=== PATIENT | male | born 1990 | race American Indian/Alaskan Native ===

== ENCOUNTER 2021-09-21 14:38 | Emergency (ER) | payer BC ==
[~2021-09-21] VITALS: Ht 152.4 cm; Wt 53.5 kg
[~2021-09-21 14:38] MED LIST: ACID REDUCER 1150 MG PO; IBUP600 PO; LOPE2C PO; Naprosyn500 MG PO; Norco 10-325 T1 EACH PO; Norco 5-325 Ta1 EACH PO; Papaya Enzyme1 EAC1 PO; Pepcid40 MG PO; Prilosec Otc20 MG PO; RANI150; Robaxin500 MG PO; Veetids 500500 MG PO; Zofran Odt4 MG SL; Zofran4 MG PO; Zofran8 MG PO
== END 2021-09-21 14:46 | disposition home or self-care (01) ==
LOC: ER 14:38
DX: U07.1 COVID-19 (principal); F17.210 Nicotine dependence, cigarettes, uncomplicated; Z91.011 Allergy to milk products
CPT/HCPCS: 99282

== ENCOUNTER 2021-11-22 21:20 | Emergency (ER) | payer BC, OTHER ==
[~2021-11-22] VITALS: Ht 152.4 cm; Wt 50.8 kg
[2021-11-22] MEDS ORDERED: LIDO700A20 TOP (23:36)
[2021-11-22] MEDS ORDERED: CYCLOBENZAPRINE5 MG PO (23:36)
== END 2021-11-23 | disposition home or self-care (01) ==
LOC: ER 21:20
DX: S29.012A Strain of muscle and tendon of back wall of thorax, initial encounter (principal); X58.XXXA Exposure to other specified factors, initial encounter; Z91.011 Allergy to milk products; Z79.899 Other long term (current) drug therapy; F17.210 Nicotine dependence, cigarettes, uncomplicated
CPT/HCPCS: 99283